=== PATIENT | female | born 2005 | race African-American/Black ===

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

== ENCOUNTER 2025-01-30 10:16 | Emergency (ER) | payer BC ==
[2025-01-30] MEDS ORDERED: Acetaminophen 325 MG TAB ONE (11:04)
== END 2025-01-30 11:31 | disposition home or self-care (01) ==
LOC: CSHERS 10:16
DX: B34.9 Viral infection, unspecified (principal)
CPT/HCPCS: 87426; 99283; Q0162